=== PATIENT | male | born 1985 | race Two or more races ===

== ENCOUNTER 2018-06-27 09:46 | Outpatient (CLI) | payer OTHER ==
[2018-06-27] MEDS ORDERED: AMBIEN10 MG PO (12:01)
[2018-06-27] MEDS ORDERED: ABILIFY MYCITE2 MG PO (12:02)
[2018-06-27] MEDS ORDERED: CLONAZEPAM0.5 MG PO (12:04)
[2018-06-27] MEDS ORDERED: DEPAKOTE ER250 MG PO (12:04)
[2018-06-27] MEDS ORDERED: [UNRECOGNIZED DRUG - OTHER] PO (12:04)
== END 2018-06-27 10:03 | disposition home or self-care (01) ==
LOC: RAD 501 09:46
DX: Z01.89 Encounter for other specified special examinations (principal)

== ENCOUNTER 2018-07-02 09:00 | Inpatient (IN) | payer OTHER ==
[~2018-07-02] VITALS: Ht 185.4 cm; Wt 95.3 kg
[~2018-07-02 09:00] MED LIST: ABILIFY MYCITE2 MG PO; AMBIEN10 MG PO; CLONAZEPAM0.5 MG PO; DEPAKOTE ER250 MG PO; [UNRECOGNIZED DRUG - OTHER] PO
[2018-07-09] MEDS ORDERED: BUPROPION XL450 MG PO (08:04)
[2018-07-12] MEDS ORDERED: HYOSCYAMINE0.125 M1 SL (07:45)
[2018-07-12] MEDS ORDERED: OXYC1TAB9 PO (07:46)
[2018-07-12] MEDS ORDERED: INTESTINEX680 M1 PO (07:46)
== END 2018-07-12 10:08 | disposition home or self-care (01) | DRG 330 ==
LOC: EDUNIT# 09:00 → SURH 07-09 07:17 → O/R 07-09 07:17 → SURH 07-09 08:45
PROVIDERS: ADMIT Surgery
PROC: 0DTK4ZZ Resection of Ascending Colon, Percutaneous Endoscopic Approach (ICD-10-PCS; principal; 2018-07-09 08:45)
DX: K50.012 Crohn's disease of small intestine with intestinal obstruction (principal); K56.690 Other partial intestinal obstruction; D50.0 Iron deficiency anemia secondary to blood loss (chronic); K52.89 Other specified noninfective gastroenteritis and colitis